=== PATIENT | female | born 1980 | race American Indian/Alaskan Native ===

== ENCOUNTER 2020-05-29 10:00 | Outpatient (CLI) | payer MEDICAID | END 2020-05-29 10:01 | disposition home or self-care (01) | LOC: SLR 10:00 | PROVIDERS: ATTEND Surgery | DX: G47.30 Sleep apnea, unspecified (principal) | CPT/HCPCS: G0399 ==

== ENCOUNTER 2020-10-17 06:24 | Day surgery (SDC) | payer MEDICAID ==
[2020-10-17] MEDS ORDERED: SODIUM CHLORIDE 0.9% 1000 ML 1,000 ML IV SCH (07:00)
--- NOTE | 2020-10-17 07:47 | Anesthesia Consultation ---
Anesthesia Consult and Med Hx Date of service: 10/17/20 - Airway Anesthetic Teeth Evaluation: Good ROM Head & Neck: Adequate Mental/Hyoid Distance: Adequate Mallampati Class: Class I Intubation Access Assessment: Probably Good - Pulmonary Exam CTA: Yes - Cardiac Exam Cardiac Exam: RRR - Pre-Operative Health Status ASA Pre-Surgery Classification: ASA3 Proposed Anesthetic Plan: MAC - Pulmonary Hx Smoking: No Hx Sleep Apnea: Yes (waiting on CPAP to arrive) - Cardiovascular System Hx Hypertension: Yes - Central Nervous System Hx Neuromuscular Disorder: No - Endocrine Hx Renal Disease: No Hx Liver Disease: No Hx Thyroid Disease: No - Hematic Hx Anemia: No Hx Sickle Cell Disease: No - Other Systems Hx Alcohol Use: No Hx Obesity: Yes (BMI 48.7) - Additional Comments Anesthesia Medical History Comments: No h/o GAC. No FHAC.
--- NOTE | 2020-10-17 07:48 | Anesthesia Day of Surgery ---
Anesthesia Day of Surgery - Day of Surgery Patient Examined: Yes Patient H&P Reviewed: Yes Patient is NPO: Yes Beta Blockers: No (n/a) Cardiac Clearance: No (n/a) Pulmonary Clearance: No (n/a) Kory's Test: N/A
--- NOTE | 2020-10-17 08:49 | Operative Report ---
Operative Report Operative Report: DATE: 10/17/2020 SURGERY: Upper endoscopy. SURGEON: Dianna James M.D. PROCEDURE: EGD with biopsy PRE OP DX: morbid obesity, GERD POST OP DX: morbid obesity, GERD TYPE OF ANESTHESIA: MAC. ESTIMATED BLOOD LOSS: None. COMPLICATIONS: None. SPECIMENS REMOVED: antral biopsy FINDINGS: 1. Small hiatal hernia. 2. mild antral gastritis INDICATIONS:INDICATION FOR PROCEDURE: Patient is a 40-year-old female with a long history of morbid obesity. She is planned to have a weight loss procedure and is here for preoperative planning EGD. PROCEDURE DETAILS: After consent was reviewed, patient was taken back to the operating room where patient was placed in the left lateral decubitus position and a bite block was placed in the mouth. After a time-out was called, MAC anesthesia was initiated. I then passed the endoscope into her oropharynx, into her esophagus, visualized the entire esophagus, which was all within normal limits. Z-line was noted to about 38cm from incisors. I then visualized the stomach and the first portion of the duodenum and there were no abnormalities I could clearly visualize except for antral gastritis. A cold forceps biopsy of the antrum was taken and will be sent to pathology to evaluate for H.pylori. I then retroflexed the scope in the stomach and visualized the hiatus and I could see a small hiatal hernia. I then desufflated the stomach and removed the endoscope. Patient tolerated procedure well and was transferred to recovery room in good and stable condition.
--- NOTE | 2020-10-17 08:51 | Discharge Summary ---
Providers - Providers Date of Admission: 10/17/2020 Date of discharge: 10/17/20 Attending physician: GLO MAS MD Primary care physician: MARCELLO LENNON Hospitalization Reason for admission: pre-op EGD Condition: Good Procedures: egd w/ biopsy Hospital course: Pt presented for a pre-op EGD as part of planning for up coming bariatric surgery. Procedure was uneventful and pt recovered well and was discharged to home. Disposition: DC-01 TO HOME OR SELFCARE Final Discharge Diagnosis (Prints w/discharge instructions): dyspepsia, morbid obesity Core Measure Documentation - Palliative Care Palliative Care/ Comfort Measures: Not Applicable - Core Measures Any of the following diagnoses?: none Exam - Physical Exam Narrative exam: unchanged from pre-op - Constitutional Vitals: Temp Pulse Resp BP Pulse Ox 97.9 F 67 16 126/82 98 10/17/20 08:49 10/17/20 08:49 10/17/20 08:49 10/17/20 08:49 10/17/20 08:49 Plan Activity: no restrictions Diet: low carbohydrate Follow up with: MARCELLO LENNON MD [Primary Care Provider] - 7 Days
[2020-10-17] MEDS ORDERED: fentaNYL 100 MCG/2 ML INJ ONE (08:56)
[2020-10-17] MEDS ORDERED: ONDANSETRON 4 MG/2 ML INJ ONE (08:56)
[2020-10-17] MEDS ORDERED: LIDOCAINE MPF (2%) 20 MG/1 ML VIAL 5 ML ONE (08:56)
[2020-10-17] MEDS ORDERED: propofoL 200 MG/20 ML VIAL IV ONE (08:57)
[2020-10-17 09:38] VITALS: BP 120/77
--- NOTE | 2020-10-17 13:51 | Post Anesthesia Evaluation ---
- Post Anesthesia Evaluation Patient Participated: Yes Airway Patent: Yes Stable Respiratory Function: Yes Nausea/Vomiting: No Temp > 96.8F: Yes Pain Manageable: Yes Adequeate Hydration: Yes Anesthesia Complications: No Block Receding Appropriately: Not Applicable Patient on Ventilator: No
== END 2020-10-17 09:50 | disposition home or self-care (01) ==
LOC: GIO 06:24
PROVIDERS: ATTEND Surgery
DX: K21.9 Gastro-esophageal reflux disease without esophagitis (principal); E66.01 Morbid (severe) obesity due to excess calories; K44.9 Diaphragmatic hernia without obstruction or gangrene; K29.70 Gastritis, unspecified, without bleeding; I10 Essential (primary) hypertension; G47.30 Sleep apnea, unspecified; Z91.040 Latex allergy status; Z68.42 Body mass index [BMI] 45.0-49.9, adult
CPT/HCPCS: 43239; 88305; 88342; J2405; J2704; J3010; J7030

== ENCOUNTER 2020-12-18 08:28 | Observation (INO) | payer MEDICAID ==
[2020-12-13 10:20] LABS: Alanine Aminotransferase 7 units/L (7-56); Albumin 3.8 g/dL (3.9-5); Blood Urea Nitrogen 16 mg/dL (7-17); Hemolysis Index 2
[2020-12-13 10:26] LABS: BUN/Creatinine Ratio 40
[2020-12-13 10:35] LABS: Hematocrit 33.8 % (30.3-42.9); Hemoglobin 11.4 gm/dl (10.1-14.3); Mean Corpuscular HGB Conc 34 % (30-34); Mean Corpuscular Volume 90 fl (79-97); Platelet Count 226 K/mm3 (140-440); Red Blood Count 3.74 M/mm3 (3.65-5.03); Red Cell Distribution Width 13.7 % (13.2-15.2)
--- NOTE | 2020-12-13 11:33 | Anesthesia Consultation ---
Anesthesia Consult and Med Hx Date of service: 12/18/20 - Airway Anesthetic Teeth Evaluation: Good (Missing teeth) ROM Head & Neck: Adequate Mental/Hyoid Distance: Adequate Mallampati Class: Class II Intubation Access Assessment: Good - Pre-Operative Health Status ASA Pre-Surgery Classification: ASA3 Proposed Anesthetic Plan: General - Pulmonary Hx Smoking: No Hx Respiratory Symptoms: No (+2FS) Hx Sleep Apnea: Yes - Cardiovascular System Hx Hypertension: Yes (Sometimes high but not treated) - Central Nervous System Hx Neuromuscular Disorder: No Hx Psychiatric Problems: No - Gastrointestinal Hx Gastroesophageal Reflux Disease: Yes (On EGD; denies symptoms) - Endocrine Hx Renal Disease: No Hx Liver Disease: No Hx Thyroid Disease: No - Hematic Hx Anemia: No Hx Sickle Cell Disease: No - Other Systems Hx Alcohol Use: No Hx Cancer: No Hx Obesity: Yes (BMI 48.7)
[~2020-12-18 08:28] MED LIST: ACETAMINOPHEN IV 1,000 MG/100 ML BOTTLE IV NR; ENOXAPARIN 40 MG/0.4 ML INJ SUB-Q NR; GABAPENTIN 500 MG/10 ML ORAL LIQD PO NR; METHOCARBAMOL IV NR; MIDAZOLAM 2 MG/2 ML INJ IV NR; SCOPOLAMINE TRANSDERMAL PATCH 72 HR TD NR; SODIUM CHLORIDE 0.9% IV NR; metroNIDAZOLE/NS 500 MG/100 ML 500 MG/100 ML BAG IV NR
[2020-12-18 09:00] LABS: Bilirubin,Urine NEG (Negative); Blood,Urine SM (Negative); Color,Urine Yellow (Yellow); Mucus,Urine 1+ /HPF; Protein,Urine <15 mg/dL mg/dL (Negative)
[2020-12-18] MEDS: LACTATED RINGERS 1,000 ML IV SCH (09:01)
[2020-12-18] MEDS ORDERED: LIDOCAINE 1%/EPINEPHRINE 1:100,000 VIAL (20 ML) INFILTRATI ONE ×2 (09:54→11:45)
[2020-12-18] MEDS ORDERED: BUPIVACAINE/PF (0.25%) 2.5 MG/ML 30 ML VIAL INFILTRATI ONE ×2 (09:54→11:43)
[2020-12-18] MEDS ORDERED: dexAMETHasone 20 MG/5 ML VIAL ONE (10:01)
[2020-12-18] MEDS ORDERED: propofoL 200 MG/20 ML VIAL IV ONE (10:01)
[2020-12-18] MEDS ORDERED: ROCURONIUM 50 MG/5 ML INJ IV ONE ×2 (10:01→11:57)
[2020-12-18] MEDS ORDERED: MAGNESIUM SULFATE 4 GM/100 ML BAG IV ONE (10:22)
[2020-12-18] MEDS ORDERED: SODIUM CHLORIDE P/F VIAL 10 ML 10 ML ONE (10:23)
[2020-12-18] MEDS ORDERED: KETAMINE/STERILE WATER 50 MG/ML SYRINGE ONE (10:29)
[2020-12-18] MEDS ORDERED: KETOROLAC 30 MG/1 ML INJ ONE ×2 (10:29→12:01)
[2020-12-18] MEDS ORDERED: LIDOCAINE PF 100 MG/5 ML (CARDIAC SYRINGE) IV ONE (10:33)
[2020-12-18] MEDS ORDERED: SODIUM CHLORIDE 0.9% IRR 1,000 ML BOTTLE IR ONE (11:43)
--- NOTE | 2020-12-18 11:51 | Anesthesia Day of Surgery ---
Anesthesia Day of Surgery - Day of Surgery Patient Examined: Yes Patient H&P Reviewed: Yes Patient is NPO: Yes
[2020-12-18] MEDS ORDERED: ONDANSETRON 4 MG/2 ML INJ ONE (12:01)
[2020-12-18] MEDS ORDERED: NEOSTIGMINE 10MG/10 ML INJ MDV ONE (12:25)
[2020-12-18] MEDS ORDERED: GLYCOPYRROLATE 0.4 MG/2 ML INJ ONE ×2 (12:25)
[2020-12-18] MEDS ORDERED: ONDANSETRON 4 MG/2 ML INJ IV PRN ×2 (12:33→13:21)
[2020-12-18] MEDS ORDERED: METOCLOPRAMIDE 10 MG/2 ML INJ IV PRN (13:21)
[2020-12-18] MEDS ORDERED: hydrALAZINE 20 MG/1 ML INJ IV PRN (13:21)
[2020-12-18] MEDS ORDERED: HYDROmorphone 1 MG/1 ML INJ IV PRN (13:21)
[2020-12-18] MEDS ORDERED: SIMETHICONE 80 MG CHEW TAB PO PRN (13:21)
[2020-12-18] MEDS ORDERED: MORPHINE 2 MG/1 ML INJ IV PRN (13:21)
[2020-12-18] MEDS ORDERED: LACTATED RINGERS 1,000 ML IV SCH (13:30)
--- NOTE | 2020-12-18 13:31 | Operative Report ---
Operative Report Operative Report: DATE: 12/18/2020 Surgeon: Dianna James MD Filter Tank Tender surgeon: Goldie Escobedo CSA MD Pre-op Dx: morbid obesity Post-op Dx: morbid obesity Procedure: 1. laparoscopic sleeve gastrectomy, 2. hiatal hernia repair Anesthesia: GETA and TAP block EBL: <10ml Specimen: gastric remnant Complication: none immediate Indication: 40 year old female with a history of morbid obesity . Pt is here for sleeve gastrectomy for weight loss to achieve healthier weight and improve or resolve his co-morbidities. She expressed understanding of the risks and benefits. PROCEDURE IN DETAIL: After consent was reviewed, patient was taken back to the operating room, where patient was placed supine on the bed with both arms out. The patient's legs were doubly strapped to the bed. Patient had a foot board in place. Patient had a body warmer placed by anesthesia. General anesthesia was induced with successful endotracheal intubation. Patient was then prepped and draped in normal sterile surgical fashion. After a time-out was called, I made a stab incision in the left subcostal area and placed a Veress needle through this incision and insufflated the abdomen to 18 mmHg pressure. I then counted down a handsbreadth below the xiphoid process in the midline and slightly left lateral injected local anesthetic and made about 1 cm transverse incision. I then used a 5-mm Optiview trocar to enter into the abdomen. There was no gross injury to any intra-abdominal structures. I then placed a 30-degree scope through this port and inspected the abdomen. I then placed a 8-mm port in the right upper quadrant, and 1 5mm in the epigastric area below the costovertebral angle. I then placed a 15-mm port about a handsbreadth in the right mid abdomen. After which a 5mm port was placed in left upper quadrant port along the anterior axillary line in a similar fashion. A liver retractor was placed to the epigastric port to elevate the left lateral lobe and liver. There was a small hiatal hernia appreciated that was accentuated with right and left crural dissection. Hiatal hernia sac was dissected from the crura until the GE junction was resting about 2cm below the level of the diaphragm without tension. An anterior crura-plasty was preformed via a U-stitch using surgidac suture. The anterior gastric fat pad was excised. Starting approximately 6 cm proximal to the pylorus, using a LigaSure device the short gastrics were taken all the way to the left alessandro. Once the lateral portion of the stomach was mobile anesthesia passed a 40 Frisian bougie along the medial aspect to act as a stent. Using serial firings of endoscopic stapler to gold, followed by 4 blue, the lateral portion of the stomach was transected making sure to did not close to the 2 cm to the incisura. All staple loads were supported with Ethicon buttress strips. The sleeve stomach was seen to be without kink obstruction or twisting. The pressure was decreased to 10 mmHg. The staple line was inspected for approximately 5 minutes. There was no significant bleeding appreciated except for a slight ooze at the most distal portion of the staple line. Bleeding was minimal and easily controlled with minimal cautery. Tisseel was then sprayed along the entirety of the staple line. The liver retractor was removed. A TAP block was performed with 60ml of 0.25% marcaine along bilateral mid axillary lines starting from the subcostal region to just below the level of the umbilicus This was after the gastric remnant was grasped and pulled into the 15 mm trocar site. The stomach was extracted via the 15 mm trocar site. After the fascia had to be stretched with a Carie clamp to easily remove the stomach, the fascia was closed using a flory colleen device at the level of the fascia with an 0 PDS. trocars were removed under direct visualization. All skin incisions were closed with 4-0 Monocryl followed by Dermabond. Patient was awoken, extubated, and taken to recovery stable condition. All counts were correct.
[2020-12-18] MEDS ORDERED: hydrALAZINE 20 MG/1 ML INJ IV NR (15:00)
--- NOTE | 2020-12-18 15:01 | Post Anesthesia Evaluation ---
- Post Anesthesia Evaluation Patient Participated: Yes Airway Patent: Yes Stable Respiratory Function: Yes Nausea/Vomiting: Yes (IV antiemetics given) Temp > 96.8F: Yes Pain Manageable: Yes Adequeate Hydration: Yes Anesthesia Complications: No
[2020-12-18] MEDS: ACETAMINOPHEN IV 1,000 MG/100 ML BOTTLE IV SCH ×2 (18:16→21:25)
[2020-12-18] MEDS: KETOROLAC 30 MG/1 ML INJ IV SCH ×2 (18:57→21:27)
[2020-12-18] MEDS: PANTOPRAZOLE 40 MG INJ IV SCH (20:34)
[2020-12-18] MEDS: metroNIDAZOLE/NS 500 MG/100 ML 500 MG/100 ML BAG IV SCH (20:34)
[2020-12-18] MEDS: ceFAZolin/NS 1 GM/50 ML 1 GM/50 ML BAG IV SCH (21:28)
[2020-12-19] MEDS: metroNIDAZOLE/NS 500 MG/100 ML 500 MG/100 ML BAG IV SCH ×3 (00:16→07:02)
[2020-12-19] MEDS: ceFAZolin/NS 1 GM/50 ML 1 GM/50 ML BAG IV SCH (00:16)
[2020-12-19] MEDS: KETOROLAC 30 MG/1 ML INJ IV SCH ×4 (03:14→21:47)
[2020-12-19] MEDS: ACETAMINOPHEN IV 1,000 MG/100 ML BOTTLE IV SCH ×2 (03:14→10:07)
[2020-12-19] MEDS: LACTATED RINGERS 1,000 ML IV SCH (03:15)
[2020-12-19 05:08] LABS: Basophils % (Auto) 0.3 % (0.0-1.8); Hematocrit 37.5 % (30.3-42.9); Hemoglobin 12.7 gm/dl (10.1-14.3); Lymphocytes # (Auto) 0.9 K/mm3 (1.2-5.4); Lymphocytes % (Auto) 8.8 % (13.4-35.0); Mean Corpuscular HGB Conc 34 % (30-34); Mean Corpuscular Volume 91 fl (79-97); Monocytes # (Auto) 0.5 K/mm3 (0.0-0.8); Monocytes % (Auto) 5.4 % (0.0-7.3); Platelet Count 219 K/mm3 (140-440); Red Blood Count 4.14 M/mm3 (3.65-5.03); Red Cell Distribution Width 13.8 % (13.2-15.2)
[2020-12-19 05:25] LABS: Alanine Aminotransferase 10 units/L (7-56); Albumin 3.6 g/dL (3.9-5); Blood Urea Nitrogen 6 mg/dL (7-17); Calcium 9.2 mg/dL (8.4-10.2); Hemolysis Index 6
[2020-12-19 05:52] LABS: BUN/Creatinine Ratio 12
[2020-12-19] MEDS: ENOXAPARIN 40 MG/0.4 ML INJ SUB-Q SCH (10:06)
[2020-12-19] MEDS: PANTOPRAZOLE 40 MG INJ IV SCH (10:06)
--- NOTE | 2020-12-19 14:06 | Progress Note ---
Assessment and Plan POD#1 s/p lap gastric sleeve with hiatal hernia repair. Afebrile and stable. not drinking sufficient to feel comfortable to discharge today. Will continue to encourage frequent small sips and hopefully discharge tomorrow. Subjective Date of service: 12/19/20 Narrative: Pt says she did ok overnight. Pain is controlled. She says she has some pain after she drinks but denies nausea and vomiting. Objective Vital Signs - 12hr 12/19/20 12/19/20 12/19/20 03:12 04:12 08:10 Temperature 99.8 F H 98.3 F Pulse Rate 90 70 95 H Respiratory 16 20 Rate Blood Pressure 149/87 147/91 O2 Sat by Pulse 98 98 Oximetry - General physical appearance well developed, no distress, no pain - Respiratory normal expansion, normal respiratory effort - Abdomen soft, other (appopriatley tender to palpation) - Psychiatric oriented to time, oriented to person, oriented to place - Labs 12/19/20 04:25 12/19/20 04:25 Diabetes panel 12/19/20 Range/Units 04:25 Sodium 135 L (137-145) mmol/L Potassium 4.1 (3.6-5.0) mmol/L Chloride 101.7 (98-107) mmol/L Carbon Dioxide 25 (22-30) mmol/L BUN 6 L (7-17) mg/dL Creatinine 0.5 L (0.6-1.2) mg/dL Glucose 93 (65-100) mg/dL Calcium 9.2 (8.4-10.2) mg/dL AST 15 (5-40) units/L ALT 10 (7-56) units/L Alkaline Phosphatase 77 (35-129) units/L Total Protein 7.2 (6.3-8.2) g/dL Albumin 3.6 L (3.9-5) g/dL Calcium panel 12/19/20 Range/Units 04:25 Calcium 9.2 (8.4-10.2) mg/dL Albumin 3.6 L (3.9-5) g/dL Pituitary panel 12/19/20 Range/Units 04:25 Sodium 135 L (137-145) mmol/L Potassium 4.1 (3.6-5.0) mmol/L Chloride 101.7 (98-107) mmol/L Carbon Dioxide 25 (22-30) mmol/L BUN 6 L (7-17) mg/dL Creatinine 0.5 L (0.6-1.2) mg/dL Glucose 93 (65-100) mg/dL Calcium 9.2 (8.4-10.2) mg/dL Adrenal panel 12/19/20 Range/Units 04:25 Sodium 135 L (137-145) mmol/L Potassium 4.1 (3.6-5.0) mmol/L Chloride 101.7 (98-107) mmol/L Carbon Dioxide 25 (22-30) mmol/L BUN 6 L (7-17) mg/dL Creatinine 0.5 L (0.6-1.2) mg/dL Glucose 93 (65-100) mg/dL Calcium 9.2 (8.4-10.2) mg/dL Total Bilirubin 0.30 (0.1-1.2) mg/dL AST 15 (5-40) units/L ALT 10 (7-56) units/L Alkaline Phosphatase 77 (35-129) units/L Total Protein 7.2 (6.3-8.2) g/dL Albumin 3.6 L (3.9-5) g/dL
[2020-12-19] MEDS: HYDROcodone/Acetaminophen 7.5-325MG-15ML ORAL LIQD PO PRN (19:53)
[2020-12-20] MEDS: HYDROcodone/Acetaminophen 7.5-325MG-15ML ORAL LIQD PO PRN (01:56)
[2020-12-20] MEDS: KETOROLAC 30 MG/1 ML INJ IV SCH ×2 (02:00→08:59)
[2020-12-20] MEDS ORDERED: diphenhydrAMINE 50 MG/ML VIAL IV ONE (03:00)
[2020-12-20 05:06] LABS: Basophils % (Auto) 0.5 % (0.0-1.8); Eosinophils % (Auto) 0.5 % (0.0-4.3); Hematocrit 36.1 % (30.3-42.9); Hemoglobin 12.4 gm/dl (10.1-14.3); Lymphocytes # (Auto) 1.9 K/mm3 (1.2-5.4); Lymphocytes % (Auto) 26.5 % (13.4-35.0); Mean Corpuscular HGB Conc 34 % (30-34); Mean Corpuscular Volume 90 fl (79-97); Monocytes # (Auto) 0.5 K/mm3 (0.0-0.8); Monocytes % (Auto) 6.7 % (0.0-7.3); Platelet Count 226 K/mm3 (140-440); Red Blood Count 4.02 M/mm3 (3.65-5.03); Red Cell Distribution Width 13.3 % (13.2-15.2)
[2020-12-20 05:25] LABS: Alanine Aminotransferase 9 units/L (7-56); Albumin 3.6 g/dL (3.9-5); Blood Urea Nitrogen 8 mg/dL (7-17); Calcium 9.3 mg/dL (8.4-10.2); Hemolysis Index 1
[2020-12-20 05:28] LABS: BUN/Creatinine Ratio 13
[2020-12-20 08:26] VITALS: BP 153/76
[2020-12-20] MEDS: ENOXAPARIN 40 MG/0.4 ML INJ SUB-Q SCH (09:00)
[2020-12-20] MEDS: PANTOPRAZOLE 40 MG INJ IV SCH (09:01)
[2020-12-20] MEDS ORDERED: diphenhydrAMINE/ZINC ACET 2% CREAM 28.4 GM TP PRN (11:00)
--- NOTE | 2020-12-20 12:19 | Discharge Summary ---
Providers - Providers Date of Admission: 12/18/20 08:29 Date of discharge: 12/20/20 Attending physician: GLO MAS MD 12/18/20 13:21 Physical Therapy Evaluation and Treat [CONS] Routine Comment: Reason For Exam: post op bariatric surgery Primary care physician: MARCELLO LENNON Hospitalization Reason for admission: s/p bariatric surgery Condition: Good Procedures: lap gastric sleeve with hiatal hernia repair Hospital course: Patient had an uncomplicated laparoscopic gastric sleeve with hiatal hernia repair for morbid obesity. Patient remained afebrile and stable throughout her course. She had laboratory values that were within acceptable limits with good pain control. Patient stayed an extra day due to insufficient oral intake due to discomfort when drinking. By postop day 2 she was tolerating liquids with minimal difficulty. She was discharged to home on postop day 2 showing no clinical signs of leak or bleeding. Patient is to follow-up in the office in 2 weeks for follow-up. Disposition: 01 HOME / SELF CARE / HOMELESS Final Discharge Diagnosis (Prints w/discharge instructions): Morbid obesity, gastroesophageal reflux Core Measure Documentation - Palliative Care Palliative Care/ Comfort Measures: Not Applicable - Core Measures Any of the following diagnoses?: none Exam - Constitutional Vitals: Temp Pulse Resp BP Pulse Ox 98.2 F 66 18 153/76 95 12/20/20 08:24 12/20/20 08:24 12/20/20 10:15 12/20/20 08:24 12/20/20 10:15 General appearance: Present: no acute distress, obese - Respiratory Respiratory effort: normal - Cardiovascular Heart Sounds: Present: S1 & S2 - Extremities Extremities: no ischemia - Abdominal General gastrointestinal: Present: other (Incisions clean dry and intact, appropriately tender to palpation) Plan Activity: advance as tolerated Diet: clear liquids Wound: open to air, keep clean and dry Follow up with: MARCELLO LENNON MD [Primary Care Provider] - 7 Days
--- OUTSIDE RECORDS SUMMARY | 2020-12-21 07:42 | External Medical Summary ---
:1980 Author Organization [facility], [facility] Address [address] [place] [address] Care Team Providers Name Role Phone Dianna James Unavailable [phone] PROBLEMS Type Condition ICD9-CM KGY14-VO Onset Condition W/U Status Risk SNOM ED Notes Code Code Dates Status Code Problem Body mass Z68.42 Active confirmed 905732149 index [BMI] 45.0-49.9, adult Problem Vitamin D E55.9 Active confirmed 98010601 deficiency, unspecified Problem Gastro-esopha K21.9 Active confirmed 171524 005 geal reflux disease without esophagitis Problem Dietary Z71.3 Active confirmed 885502215 counseling and surveillance Problem Functional K30 Active confirmed 5760646 dyspepsia Problem Sleep apnea, G47.30 Active confirmed 5889930 6 unspecified Problem Morbid E66.01 Active confirmed 196280571 (severe) obesity due to excess calories ALLERGIES Allergen (clinical drug Drug/Non Drug Allergy Reaction Allergy Type Onset Date Status ingredient) documented on EMR Latex Latex Unknown Drug Allergy Active ENCOUNTERS from 1979 to 2020-12-18 Encounter Location Date Provider Diagnosis [facility] [address] 16 Nov, 2020 [address]ianna James Morbi d (severe) [address] obesity due to excess of [place], [place] calorie s E66.01 ; [id number] Sleep apnea, unspecified G47 .30 and Gastro-esophage al reflux disease without esophagitis K21 .9 IMMUNIZATIONS No Information SOCIAL HISTORY Tobacco Use: Social History Observation Description Date Details (start date - stop date) Never Smoker Sex Assigned At : Social History Observation Description Sex Assigned At Unknown Smoking Question Answer Notes Are you a: never smoker REASON FOR REFERRAL from 1979 to 2020-12-18 Diagnosis 1 Functional dyspepsia (K30) Diagnosis 2 Morbid (severe) obesity due to excess calories (E66.01) Diagnosis 3 Sleep apnea, unspecified (G4 7.30) Diagnosis 4 Dietary counseling and surve illance (Z71.3) Diagnosis 5 Body mass index [BMI] 45.0-4 9.9, adult (Z68.42) Diagnosis 6 Vitamin D deficiency, unspec ified (E55.9) Diagnosis 7 Gastro-esophageal reflux dis ease without esophagitis (K21.9) Diagnosis 8 Pain in unspecified knee (M2 5.569) Diagnosis 9 Low back pain (M54.5) Referral Organization [facility] Referring Provider First Name Dianna Referring Provider Last Name Jacob Referring Provider Specialty Surgery Referred Provider [facility], - Referral Priority Routine VITAL SIGNS Height 67 in Nov, Weight 281.7 lbs Nov, Temperature 97.8 degrees Fahrenheit Nov, BMI 44.12 kg/m2 Nov, Blood pressure systolic 138 mm Hg Nov, Blood pressure diastolic 89 mm Hg Nov, MEDICATIONS Medication SIG (Take, Route, Frequency, Notes Start Date End Bear e Status Duration) Ondansetron 4 MG 1-2 tablet on the tongue and Nov, Active allow to dissolve Orally q 4-6 hours prn nausea for 30 day(s) NexIUM 40 MG 1 capsule Orally Once a day for Nov, Active 30 day(s) PROCEDURES No Information RESULTS No Results REASON FOR VISIT preop sleeve MEDICAL (GENERAL) HISTORY Type Description Date Medical History anxiety Medical History sleep apnea Medical History dyspepsia Medical History arthritis/joint pain Medical History asthma Medical History back pain Medical History depression Medical History eczema or skin conditon Medical History high blood pressure Medical History migraines Medical History easy bruising Medical History gerd Surgical History breast reduction 2000 Goals Section No Information Health Concerns No Information MEDICAL EQUIPMENT No Information MENTAL STATUS No Information FUNCTIONAL STATUS No Information ASSESSMENTS Encounter Date Diagnosis Assessment Notes Treatment Notes Treatm ent Clinical Notes Nov, Morbid (severe) An hour was spent obesity due to with patient excess calories reinforcing diet, (ICD-10 - E66.01) vitamin requirements and lifestyle education, A quiz was administered and reviewed to verify understanding of intended procedure and post operative care. Consent forms were reviewed with patient and signed answering all questions, Pre-operative labs were ordered. Nov, Sleep apnea, Follow-up with CPAP unspecified company. May need (ICD-10 - G47.30) to get loaner from sleep lab. Sleep apnea should improve with weight loss after surgery. Nov, Gastro-esophageal Discussed with reflux disease patient that sleeve without gastrectomy may make esophagitis her reflux worse (ICD-10 - K21.9) however because it is mild and if she lose weight she may see improvement. PLAN OF TREATMENT Medication Medication Name Sig Start Date Stop Date Ondansetron 4 MG 1-2 tablet on the tongue and allow to Nov, 021 dissolve Orally q 4-6 hours prn nausea for 30 day(s) NexIUM 40 MG 1 capsule Orally Once a day for 30 day(s) Nov Treatment Notes Assessment Notes Clinical Notes Morbid (severe) obesity due to An hour was spent with patien t excess calories reinforcing diet, vitamin requirements and lifestyle education, A quiz was administered and reviewed to verify understanding of intended procedure and post operative care. Consent forms were reviewed with patient and signed answering all questions, Pre-operative labs were ordered. Sleep apnea, unspecified Follow-up with CPAP company. May need to get loaner from sleep lab. Sleep apnea should improve with weight loss after surgery. Gastro-esophageal reflux disease Discussed with patient that sleeve without esophagitis gastrectomy may make her reflux worse however because it is mild and if she lose weight she may see improvement. Referrals Referral Date Details Next Appt Details at surgery Reason: Provider Name:Dianna James, 2020-11- 7 09:45:00 AM, [address] [facility], [facility], [place], [place], [phone], Insurance Providers Payer Name Payer Address Payer Insured Name Patient Coverage Co verage End Phone Relationship to Start Date Bear e Insured [employer] [address] [address] [phone] Erickson Kirby self [address] [address]
== END 2020-12-20 15:58 | disposition home or self-care (01) ==
LOC: OR 08:28 → 4A 08:29
PROVIDERS: ADMIT Surgery; ATTEND Surgery
DX: K44.9 Diaphragmatic hernia without obstruction or gangrene (principal); Z20.822 Contact with and (suspected) exposure to COVID-19; E66.01 Morbid (severe) obesity due to excess calories; K95.89 Other complications of other bariatric procedure; Z68.41 Body mass index [BMI] 40.0-44.9, adult; Z79.899 Other long term (current) drug therapy; Z98.890 Other specified postprocedural states
CPT/HCPCS: 36415; 43281; 43775; 80053; 81001; 84703; 85025; 85027; 88307; 88342; 96365; 96366; 96367; 96368; 96372; 96375; 96376; 97162; C9113; G0378; J0131; J0360; J0690; J1100; J1650; J1885; J2001; J2250; J2405; J2704; J2710; J2800; J3475; J3490; J7050; J7120; U0003

== ENCOUNTER 2021-01-04 21:17 | Inpatient (IN) | payer MEDICAID ==
--- NOTE | 2021-01-04 22:20 | Emergency Department Report ---
ED General Adult HPI - General Chief complaint: Chest Pain Stated complaint: PAIN WHEN BREATHING RT SIDE Time Seen by Provider: 01/04/21 22:07 Source: patient Mode of arrival: Ambulatory Limitations: No Limitations - History of Present Illness Initial comments: 40-year-old female patient who is postop day #17 status post gastric sleeve surgery performed at this facility by Dr. James presents to the emergency department with complaints of chest pain starting 2 days ago. Describes pain as "sharp," localized to the right side of the chest, radiating to the right side of her back, reproducible with deep inspiration, with associated shortness of breath. Patient has no personal or family history of thromboembolic disease. Denies fever, chills, cough, palpitations, syncope, lower extremity pain/swelling. Denies all other complaints at this time. - Related Data Home Medications Medication Instructions Recorded Confirmed Last Taken No Known Home Medications [No 12/11/20 12/18/20 Unknown Reported Home Medications] Allergies Allergy/AdvReac Type Severity Reaction Status Date / Time latex Allergy Rash Verified 12/11/20 18:10 ED Review of Systems ROS: Stated complaint: PAIN WHEN BREATHING RT SIDE Other details as noted in HPI Other: GENERAL: Negative for fever, chills, weight change, anorexia, fatigue. ENT: Negative for ear pain, difficulty hearing, sore throat, nasal congestion, epistaxis. CARDIOVASCULAR: Positive for chest pain PULMONARY: Positive shortness of breath. GASTROINTESTINAL: Negative for abdominal pain, nausea, vomiting, diarrhea, constipation. MUSCULOSKELETAL: Negative for joint pain, joint swelling, myalgias, back pain, neck pain. NEUROLOGICAL: Negative for headache, seizure, syncope, paresthesias, weakness. INTEGUMENTARY: Negative for erythema, rash, diaphoresis, laceration, ecchymosis. HEMATOLOGICAL: Negative for hemoptysis, hematemesis, hematochezia, hematuria. PSYCHIATRIC: Negative for hallucinations, suicidal ideation, homicidal ideation, anxiety, depression. ED Past Medical Hx - Past Medical History Previous Medical History?: Yes Hx Hypertension: Yes (Sometimes high but not treated) Hx GERD: Yes Hx Liver Disease: No Hx Renal Disease: No Hx Sickle Cell Disease: No Hx Arthritis: Yes (Shoulders) - Surgical History Past Surgical History?: Yes Hx Breast Surgery: Yes (Reduction) Additional Surgical History: gastric sleeve - Social History Smoking Status: Never Smoker - Medications Home Medications: Home Medications Medication Instructions Recorded Confirmed Last Taken Type No Known Home Medications [No 12/11/20 12/18/20 Unknown History Reported Home Medications] ED Physical Exam - General Limitations: No Limitations - Other Other exam information: General: Awake and alert. No acute distress. Head: Atraumatic, normocephalic. Eyes: EOMI. Pupils are equal and round. Normal sclera and conjunctiva. ENT: Oral mucosa is moist. Normal pharyngeal exam. Neck: Supple. No lymphadenopathy. Pulmonary: No respiratory distress. Clear to auscultation bilaterally. Pleuritic right-sided chest pain reproducible with deep inspiration. Cardiac: Regular rate and rhythm. Pulses are palpable and equal bilaterally. No lower extremity cyanosis or edema. Skin: Warm and dry. No rashes. Abdomen: Soft, non-tender, non-protuberant. No guarding, rigidity, or rebound. Bowel sounds are normal. No organomegaly or masses noted. Back: Normal alignment. No CVA tenderness. Extremities: Symmetrical. Full range of motion intact. Neurological: Alert and oriented, appropriately interactive, no focal deficits. Psych: Cooperative. Appropriate mood and affect. Speech is evenly metered. Thoughts are logically construed. ED Course Vital Signs 01/04/21 21:40 Temperature 98.4 F Pulse Rate 91 H Respiratory 20 Rate Blood Pressure 114/80 O2 Sat by Pulse 96 Oximetry ED Medical Decision Making - Lab Data Result diagrams: 01/04/21 22:36 01/04/21 22:36 - EKG Data 01/05/21 01:58 EKG shows normal sinus rhythm with a ventricular rate of 88 bpm. Normal axis. Normal DC interval. Normal QT interval. Good R wave progression. No ST segment changes. Over read by attending emergency physician, who agrees with this interpretation. - Radiology Data [facility] [address] [place] [address] Cat Scan Report Signed Patient: GRANT OSORIO MR#: [id number] : 1980 Acct:[id number] Age/Sex: 40 / F ADM Date: 01/04/21 Loc: ED Attending Dr: Ordering Physician: TONI TELLO Date of Service: 01/04/21 Procedure(s): CT angio chest Accession Number(s): [id number] cc: TONI TELLO CTA CHEST WITH IV CONTRAST INDICATION: Pt complains of pleuritic chest pain, S/P Gastric Sleeve surgery. TECHNIQUE: Axial CT images were obtained through the chest after injection of 100 cc IV contrast. 3 plane MIP reconstructions were produced. All CT scans at this location are performed using CT dose reduction for ALARA by means of automated exposure control. COMPARISON: None available. FINDINGS: PULMONARY ARTERIES: Moderate to large acute pulmonary emboli right middle and lower lobes. THORACIC AORTA: No acute abnormality. HEART: Normal. CORONARY ARTERIES: No significant calcification. PLEURA: No pleural effusion. No pneumothorax. LYMPH NODES: No significant adenopathy. LUNGS: Linear atelectasis lingula and both lower lobes. ADDITIONAL FINDINGS: None. UPPER ABDOMEN: No acute findings. Gastric bypass surgery SKELETAL STRUCTURES: No significant osseous abnormality. IMPRESSION: 1. Acute moderate to large segmental pulmonary emboli right middle and lower lobes CRITICAL RESULT: Acute right middle and lower lobe PTE Time of Discovery (STEPDOWN NURSE/CDT): 11:50 PM Central time 01/04/2021 Time of Communication (STEPDOWN NURSE/CDT): 11:51 PM Central time Licensed Practitioner Receiving Report: Nurse Landaverde Read-Back Performed: Yes. Signer Name: Tone Whittaker MD Signed: 01/05/2021 12:52 AM Workstation Name: [id number] Transcribed By: TL Dictated By: Tone Whittaker MD Electronically Authenticated By: Tone Whittaker MD Signed Date/Time: 01/05/2151 DD/ TD/TT: - Medical Decision Making Differential diagnosis including but not limited to: pulmonary embolism, pulmonary infarction, right heart strain, pleural effusion, pneumothorax On reevaluation, patient remains stable. No tachycardia, no hypoxia, no respiratory distress. Labs are unremarkable. EKG without acute injury pattern. D-dimer was not obtained due to high pretest probability for pulmonary embolism based on clinical presentation and recent surgery. CT angiogram of the chest shows acute moderate/large segmental pulmonary emboli involving the right middle and lower lobes. No clinical evidence to suggest right heart strain or pulmonary infarction. Patient placed on billiard table mechanic and continuous pulse oximetry. Started Heparin bolus 80 units/kg followed by Heparin drip 18 units/kg/hour. Case discussed with Dr. Matamoros, hospitalist, who agrees to admit. Patient expressed understanding and is agreeable to plan of care. Case discussed with Dr. Pa, attending emergency physician, who agrees with diagnostic work-up/plan of care. Critical Care Time: Yes Critical care time in (mins) excluding proc time.: 74 Critical care attestation.: If time is entered above; I have spent that time in minutes in the direct care of this critically ill patient, excluding procedure time. Critical Care Time: 74 ED Disposition Clinical Impression: Pulmonary emboli Qualifiers: Pulmonary embolism type: unspecified Chronicity: acute Acute cor pulmonale pres ence: without acute cor pulmonale Qualified Code(s): I26.99 - Other pulmonary embolism without acute cor pulmonale Disposition: 09 ADMITTED INPATIENT Is pt being admited?: Yes Does the pt Need Aspirin: No Condition: Serious Time of Disposition: 02:24
[2021-01-04 22:56] LABS: Basophils % (Auto) 0.4 % (0.0-1.8); Eosinophils % (Auto) 0.4 % (0.0-4.3); Hematocrit 38.3 % (30.3-42.9); Hemoglobin 12.9 gm/dl (10.1-14.3); Lymphocytes # (Auto) 0.7 K/mm3 (1.2-5.4); Lymphocytes % (Auto) 10.3 % (13.4-35.0); Mean Corpuscular HGB Conc 34 % (30-34); Mean Corpuscular Volume 91 fl (79-97); Monocytes # (Auto) 0.3 K/mm3 (0.0-0.8); Monocytes % (Auto) 4.5 % (0.0-7.3); Platelet Count 223 K/mm3 (140-440); Red Blood Count 4.21 M/mm3 (3.65-5.03); Red Cell Distribution Width 13.1 % (13.2-15.2)
[2021-01-04 23:05] LABS: INR 0.99 (0.87-1.13)
[2021-01-04 23:06] LABS: Partial Thromboplastin Time 27.6 Sec. (24.2-36.6)
[2021-01-04 23:23] LABS: Alanine Aminotransferase 8 units/L (7-56); Albumin 3.9 g/dL (3.9-5); Blood Urea Nitrogen 8 mg/dL (7-17); Calcium 9.6 mg/dL (8.4-10.2); Hemolysis Index 1
[2021-01-04 23:49] LABS: BUN/Creatinine Ratio 13
--- NOTE | 2021-01-05 00:56 | Cat Scan Report ---
CTA CHEST WITH IV CONTRAST INDICATION: Pt complains of pleuritic chest pain, S/P Gastric Sleeve surgery. TECHNIQUE: Axial CT images were obtained through the chest after injection of 100 cc IV contrast. 3 plane MIP re constructions were produced. All CT scans at this location are performed using CT dose reduction for ALARA by means of automated exposure control. COMPARISON: None available. FINDINGS: PULMONARY ARTERIES: Moderate to large acute pulmonary emboli right middle and lower lobes. THORACIC AORTA: No acute abnormality. HEART: Normal. CORONARY ARTERIES: No significant calcification. PLEURA: No pleural effusion. No pneumothorax. LYMPH NODES: No significant adenopathy. LUNGS: Linear atelectasis lingula and both lower lobes. ADDITIONAL FINDINGS: None. UPPER ABDOMEN: No acute findings. Gastric bypass surgery SKELETAL STRUCTURES: No significant osseous abnormality. IMPRESSION: 1. Acute moderate to large segmental pulmonary emboli right middle and lower lobes CRITICAL RESULT: Acute right middle and lower lobe PTE Time of Discovery (PUBLIC POLICY ASSOCIATE/CDT): 11:50 PM Central time 01/04/2021 Time of Communication (PUBLIC POLICY ASSOCIATE/CDT): 11:51 PM Central time Licensed Practitioner Receiving Report: Nurse Landaverde Read-Back Performed: Yes. Signer Name: Tone Whittaker MD Signed: 01/05/2021 12:52 AM Workstation Name: [id number]
[2021-01-05] MEDS ORDERED: HEPARIN 10,000 UNITS/10 ML VIAL IV ONE (01:35)
[2021-01-05] MEDS ORDERED: HEPARIN/ 0.45% NACL DRIP 25,000 UNIT/500 ML BAG IV SCH (02:00)
[2021-01-05] MEDS ORDERED: ACETAMINOPHEN 325 MG TAB PO PRN (03:11)
[2021-01-05] MEDS ORDERED: ONDANSETRON 4 MG/2 ML INJ IV PRN (03:11)
[2021-01-05] MEDS ORDERED: MAGNESIUM HYDROXIDE (MOM) ORAL LIQD UDC PO PRN (03:11)
--- NOTE | 2021-01-05 03:21 | History and Physical Report ---
History of Present Illness Date of examination: 01/05/21 Date of admission: 01/05/2021 Chief complaint: Chest pain History of present illness: 40-year-old female presenting to the emergency room today complaining of chest pain which has been ongoing for about 2 days. Patient is status post gastric sleeve surgery about 17 days ago which was performed by Dr. James. Denies any fever or chills, no headache or dizziness and no diaphoresis. Chest pain has been sharp and there has been no radiation. Pain is worse on taking a deep breath. Patient denies any lower extremity swelling. Work-up in the emergency room today, CT angiogram reveals acute moderate to larg e segmental pulmonary emboli right middle and lower lobes. Patient has been started on anticoagulation in the emergency room. Past History Past Medical History: arthritis, GERD, hypertension Past Surgical History: Other (Breast reduction, gastric sleeve) Social history: no significant social history Family history: no significant family history Medications and Allergies Allergies Allergy/AdvReac Type Severity Reaction Status Date / Time latex Allergy Rash Verified 12/11/20 18:10 Home Medications Medication Instructions Recorded Confirmed Last Taken Type No Known Home Medications [No 12/11/20 12/18/20 Unknown History Reported Home Medications] Active Meds: Active Medications Acetaminophen (Acetaminophen 325 Mg Tab) 650 mg PO Q4H PRN PRN Reason: Pain MILD(1-3)/Fever >100.5/VELASCO Heparin Sodium/Sodium Chloride (Heparin/ 0.45% Nacl-25,000 Unit/500 Ml) 25,000 unit in 500 mls @ 30 mls/hr IV TITR CIARA; Protocol Magnesium Hydroxide (Magnesium Hydroxide (Mom) Oral Liqd Udc) 30 ml PO Q4H PRN PRN Reason: Constipation Morphine Sulfate (Morphine 2 Mg/1 Ml Inj) 2 mg IV Q4H PRN PRN Reason: Pain, Moderate (4-6) Morphine Sulfate (Morphine 4 Mg/1 Ml Inj) 4 mg IV Q4H PRN PRN Reason: Pain , Severe (7-10) Ondansetron HCl (Ondansetron 4 Mg/2 Ml Inj) 4 mg IV Q8H PRN PRN Reason: Nausea And Vomiting Sodium Chloride (Sodium Chloride 0.9% 10 Ml Flush Syringe) 10 ml IV PRN PRN PRN Reason: LINE FLUSH Sodium Chloride (Sodium Chloride 0.9% 10 Ml Flush Syringe) 10 ml IV BID CIARA Sodium Chloride (Sodium Chloride 0.9% 10 Ml Flush Syringe) 10 ml IV PRN PRN PRN Reason: LINE FLUSH Review of Systems Constitutional: no fever, no chills Ears, nose, mouth and throat: no nasal congestion, no sore throat Cardiovascular: chest pain, shortness of breath, no palpitations Respiratory: no cough, no shortness of breath Gastrointestinal: no abdominal pain, no nausea, no vomiting, no diarrhea Genitourinary Female: no pelvic pain, no flank pain, no dysuria, no hematuria Musculoskeletal: no neck pain, no low back pain Integumentary: no rash, no pruritis Neurological: no headaches, no confusion Psychiatric: no anxiety, no depression Endocrine: no polyphagia, no polydipsia, no polyuria, no nocturia Exam - Constitutional Vitals: Temp Pulse Resp BP Pulse Ox 98.4 F 91 H 20 114/80 96 01/04/21 21:40 01/04/21 21:40 01/04/21 21:40 01/04/21 21:40 01/04/21 21:40 General appearance: Present: no acute distress, well-nourished, obese - EENT Eyes: Present: PERRL, EOM intact. Absent: scleral icterus ENT: hearing intact, clear oral mucosa, dentition normal - Neck Neck: Present: supple, normal ROM - Respiratory Respiratory effort: normal Respiratory: bilateral: CTA - Cardiovascular Rhythm: regular Heart Sounds: Present: S1 & S2. Absent: gallop, systolic murmur, diastolic murmur, rub, click - Extremities Extremities: no ischemia, pulses intact, pulses symmetrical, No edema, normal temperature, normal color, Full ROM Peripheral Pulses: within normal limits - Abdominal General gastrointestinal: Present: soft, non-tender, non-distended, normal bowel sounds, mass - Integumentary Integumentary: Present: clear, warm, dry, normal turgor. Absent: rash - Musculoskeletal Musculoskeletal: strength equal bilaterally - Psychiatric Psychiatric: appropriate mood/affect, intact judgment & insight, memory intact, cooperative - Neurologic Neurologic: CNII-XII intact, no focal deficits, moves all extremities HEART Score - HEART Score Troponin: Troponin T < 0.010 ng/mL (0.00-0.029) 01/04/21 22:36 Results - Labs CBC & Chem 7: 01/04/21 22:36 01/04/21 22:36 Labs: Abnormal lab results 01/04/21 Range/Units 22:36 RDW 13.1 L (13.2-15.2) % Lymph % (Auto) 10.3 L (13.4-35.0) % Lymph # (Auto) 0.7 L (1.2-5.4) K/mm3 Seg Neutrophils % 84.4 H (40.0-70.0) % Assessment and Plan - Patient Problems (1) Pulmonary emboli Current Visit: No Status: Acute Qualifiers: Pulmonary embolism type: unspecified Chronicity: acute Acute cor pulmonale presence: without acute cor pulmonale Qualified Code(s): I26.99 - Other pulmonary embolism without acute cor pulmonale Plan to address problem: Patient commenced on anticoagulation. We will also place consult to vascular surgery for evaluation. Patient is about 17 days post gastric sleeve surgery (2) Full code status Current Visit: No Status: Acute Plan to address problem: Patient is full code.
[2021-01-05] MEDS: MORPHINE 4 MG/1 ML INJ IV PRN ×2 (03:45→09:33)
[2021-01-05] MEDS ORDERED: HEPARIN 10,000 UNITS/10 ML VIAL IV PRN (11:51)
[2021-01-05] MEDS: MORPHINE 2 MG/1 ML INJ IV PRN ×2 (13:00→20:37)
--- NOTE | 2021-01-05 13:51 | Consultation ---
History of Present Illness - Reason for Consult Consult date: 01/05/21 Pulmonary Embolus Requesting physician: ERROL REYES - History of Present Illness The patient is a 40-year-old female with a history of morbid obesity who is postoperative day #18 from a gastric sleeve. She states that approximately 3 days ago she began experiencing right side chest pain that was worse with deep breaths. Over the next 3 days the chest pain progressively worsened prompting her to present to the emergency department. Her work-up included a CTA of her chest which revealed segmental pulmonary emboli involving the right middle and lower lobes. The patient states she has difficulty lying flat because this worsens her chest pain. She denies any significant shortness of breath. She denies any noticeable leg swelling or pain in bilateral lower extremities. She denies any history of hematemesis or hemoptysis. She denies any history of melena or bright red blood per rectum. She has no additional complaints at this time. Past History Past Medical History: arthritis, GERD, hypertension, other (Morbid obesity) Past Surgical History: Other (Breast reduction, gastric sleeve) Social history: no significant social history Family history: no significant family history Medications and Allergies Allergies Allergy/AdvReac Type Severity Reaction Status Date / Time latex Allergy Rash Verified 12/11/20 18:10 Home Medications Medication Instructions Recorded Confirmed Last Taken Type Esomeprazole Magnesium [NexIUM] 20 mg PO QDAY 01/05/21 01/05/21 01/03/21 History HYDROcodone/ACETAMINOPHEN 15 ml PO Q6H PRN 01/05/21 01/05/21 01/03/21 History [Hydrocodon-Acetamin 7.5-325/] Ibuprofen 400 mg PO PRN PRN 01/05/21 01/05/21 01/04/21 History Multivit-Min/Iron/Folic Acid/K 1 each PO QID 01/05/21 01/05/21 01/05/21 History [Bariatric Mv-Iron 45 mg Cap] Ondansetron [Zofran ODT TAB] 4 mg PO Q46H PRN 01/05/21 01/05/21 01/02/21 History Active Meds: Active Medications Acetaminophen (Acetaminophen 325 Mg Tab) 650 mg PO Q4H PRN PRN Reason: Pain MILD(1-3)/Fever >100.5/VELASCO Heparin Sodium (Porcine) (Heparin 10,000 Units/10 Ml Vial) 4,600 unit 40 unit/kg (4600 unit) IV Q6H PRN PRN Reason: Anti-Xa Assay < 0.1 units/ml Heparin Sodium/Sodium Chloride (Heparin/ 0.45% Nacl-25,000 Unit/500 Ml) 25,000 unit in 500 mls @ 30 mls/hr IV TITR CIARA; Protocol Last Admin: 01/05/21 03:45 Dose: 1,500 units/hr, 30 mls/hr Documented by: Magnesium Hydroxide (Magnesium Hydroxide (Mom) Oral Liqd Udc) 30 ml PO Q4H PRN PRN Reason: Constipation Morphine Sulfate (Morphine 2 Mg/1 Ml Inj) 2 mg IV Q4H PRN PRN Reason: Pain, Moderate (4-6) Last Admin: 01/05/21 13:00 Dose: 2 mg Documented by: Morphine Sulfate (Morphine 4 Mg/1 Ml Inj) 4 mg IV Q4H PRN PRN Reason: Pain , Severe (7-10) Last Admin: 01/05/21 09:33 Dose: 4 mg Documented by: Ondansetron HCl (Ondansetron 4 Mg/2 Ml Inj) 4 mg IV Q8H PRN PRN Reason: Nausea And Vomiting Sodium Chloride (Sodium Chloride 0.9% 10 Ml Flush Syringe) 10 ml IV PRN PRN PRN Reason: LINE FLUSH Sodium Chloride (Sodium Chloride 0.9% 10 Ml Flush Syringe) 10 ml IV BID [facility] Last Admin: 01/05/21 09:33 Dose: 10 ml Documented by: Review of Systems All systems: negative Exam - Constitutional Vitals: Temp Pulse Resp BP Pulse Ox 98.4 F 78 20 125/82 98 01/04/21 21:40 01/05/21 09:30 01/05/21 13:00 01/05/21 09:30 01/05/21 09:30 General appearance: Present: no acute distress - Respiratory Respiratory effort: normal, other (Breathing comfortably without supplemental oxygen) - Cardiovascular Heart rate: 75 Rhythm: regular - Extremities Extremities: pulses intact (Palpable pedal pulses bilaterally), No edema - Abdominal General gastrointestinal: Present: soft - Rectal Rectal Exam: deferred - Integumentary Integumentary: Present: clear Results - Labs CBC & Chem 7: 01/04/21 22:36 01/04/21 22:36 Labs: Abnormal lab results 01/04/21 Range/Units 22:36 RDW 13.1 L (13.2-15.2) % Lymph % (Auto) 10.3 L (13.4-35.0) % Lymph # (Auto) 0.7 L (1.2-5.4) K/mm3 Seg Neutrophils % 84.4 H (40.0-70.0) % - Imaging and Cardiology CT scan - chest: image reviewed Assessment and Plan The patient is a 40-year-old female with history of morbid obesity who is status post gastric sleeve surgery. She presents with segmental pulmonary emboli involving the right middle and lower lobes. She has no evidence of right heart strain or any additional indications for vascular surgery indication for throm bolysis or percutaneous chemical thrombectomy. The patient is hemodynamically stable with a heart rate that has remained in the 70s and a systolic blood pressure that has remained within the normal range. The patient's oxygen saturations have remained in the mid to high 90s without supplemental oxygen. The patient's troponins are negative. I would recommend converting her to oral anticoagulation with Eliquis 10 mg p.o. twice daily for 7 days followed by Eliquis 5 mg p.o. twice daily for 6 months if she able to tolerate tablets at this time. If she is unable to tolerate tablets she can be discharged on therapeutic Lovenox until she is able to be converted to oral anticoagulation. I discussed this plan with the patient who is expressed understanding and agrees.
--- NOTE | 2021-01-05 14:11 | Event Note ---
Date: 01/05/21 Pt called the office to notify us she was admitted for PE overnight. Upon examination pt is stable with some chest discomfort on heparin drip. She is tolerating liquids well. Appreciate Dr. Teixeira evaluation and reommendations. No surgical interveion indicated at this time. Pt can be discharged once cleared medically.
--- NOTE | 2021-01-05 15:11 | Event Note ---
Date: 01/05/21 Examined patient this afternoon. Discussed plan to discontinue heparin drip and start apixaban. Will need anticoagulation for the next 3 to 6 months depending on PCP preference. Plan to discharge in the AM if remains stable.
[2021-01-05 16:01] LABS: INR 1.12 (0.87-1.13)
[2021-01-05 16:44] LABS: Partial Thromboplastin Time 61.7 Sec. (24.2-36.6)
[2021-01-05] MEDS: APIXABAN 5 MG TAB PO SCH ×2 (18:34→22:59)
[2021-01-06] MEDS: MORPHINE 2 MG/1 ML INJ IV PRN ×2 (01:15→07:58)
[2021-01-06 05:44] LABS: Basophils % (Auto) 0.2 % (0.0-1.8); Eosinophils # (Auto) 0.1 K/mm3 (0.0-0.4); Hematocrit 34.7 % (30.3-42.9); Hemoglobin 11.8 gm/dl (10.1-14.3); Lymphocytes # (Auto) 1.5 K/mm3 (1.2-5.4); Lymphocytes % (Auto) 25.6 % (13.4-35.0); Mean Corpuscular HGB Conc 34 % (30-34); Mean Corpuscular Volume 91 fl (79-97); Monocytes # (Auto) 0.4 K/mm3 (0.0-0.8); Monocytes % (Auto) 7.7 % (0.0-7.3); Platelet Count 189 K/mm3 (140-440); Red Blood Count 3.81 M/mm3 (3.65-5.03); Red Cell Distribution Width 13.1 % (13.2-15.2)
[2021-01-06 05:50] LABS: INR 1.19 (0.87-1.13)
[2021-01-06 05:56] LABS: Blood Urea Nitrogen 8 mg/dL (7-17); Calcium 9.2 mg/dL (8.4-10.2); Hemolysis Index 3
[2021-01-06 06:01] LABS: BUN/Creatinine Ratio 13
--- NOTE | 2021-01-06 08:24 | Discharge Summary ---
Providers - Providers Date of Admission: 01/05/21 03:11 Date of discharge: 01/06/21 Attending physician: YOLIS SALEH MD 01/05/21 03:11 Consult to Physician [CONS] Routine Comment: Consulting Provider: FELISA GREGG Physician Instructions: Reason For Exam: Pulmonary embolism Primary care physician: MARCELLO LENNON Hospitalization Reason for admission: chest pain Condition: Fair Hospital course: 40-year-old woman with history of gastric sleeve surgery who presented [place] [facility] with complaints of chest pain. CT angiogram revealed acute moderate to large segmental pulmonary emboli. Heparin drip was started. Patient was switched to Eliquis. Chest pain resolved and she remained hemodynamically stable for discharge. Disposition: 01 HOME / SELF CARE / HOMELESS Final Discharge Diagnosis (Prints w/discharge instructions): Pulmonary emboli Time spent for discharge: 10 minutes Core Measure Documentation - Palliative Care Palliative Care/ Comfort Measures: Not Applicable - Core Measures Any of the following diagnoses?: DVT/PE - VTE Discharge Requirements Deep Vein Thrombosis/Pulmonary Embolism Present on Admission: Yes Has pt received <5 days of overlap therapy or INR<2.0: Yes Anticoagulant overlap therapy prescribed at discharge: Yes Exam - Physical Exam Narrative exam: GENERAL: Well-developed well-nourished. Sitting up in bed in no acute distress. CHEST/LUNGS: CTAB on room air HEART/CARDIOVASCULAR: RRR. No murmur, rubs or gallops appreciated. ABDOMEN: +BS. NT/ND. SKIN: No rashes noted. NEURO: No focal motor deficit. Follows all commands. EXTREMITIES: No cyanosis, clubbing or edema. PSYCH: Cooperative. - Constitutional Vitals: Temp Pulse Resp BP Pulse Ox 98.4 F 77 18 125/85 100 01/06/21 04:10 01/06/21 04:10 01/06/21 04:10 01/06/21 04:10 01/06/21 04:10 Plan Care Plan Goals: Start taking apixaban (Eliquis) as prescribed. Follow-up with primary care in 1 week to determine length of prescription. Assessment: Pleuritic chest pain shortness of breath resolved. Status post heparin drip. Patient started on Eliquis. Discharged home. Follow up with: MARCELLO LENNON MD [Primary Care Provider] - 7 Days Forms: Discharge Signature Page Prescriptions: Apixaban [Eliquis] 5 mg PO BID 30 Days #70 tablet HYDROcodone/APAP 7.5-325 [[employer] 7.5/325] 1 each PO Q6HR PRN 3 Days #12 tablet PRN Reason: Pain
[2021-01-06] MEDS: APIXABAN 5 MG TAB PO SCH (10:32)
[2021-01-06 11:46] VITALS: BP 126/77
--- NOTE | 2021-01-10 14:42 | Electrocardiograph Report ---
[facility] Test Date: 2021-01-05 Test Time: 00:48:42 Pat Name: GRANT OSORIO Department: Room: A454 1 Gender: F [employer]: ALEX : 1980 Requested By: ROXIE TRINIDAD Order Number: [id number] Reading MD: Marlen Kapoor Measurements Intervals Kegley Rate: 88 P: 25 CO: 124 QRS: 15 QRSD: 77 T: 12 QT: 337 QTc: 407 Interpretive Statements Sinus rhythm Probable left atrial enlargement Probable left ventricular hypertrophy No previous ECG available for comparison Electronically Signed On 01-10-2021 14:42:29 EDT by Marlen Kapoor
== END 2021-01-06 12:53 | disposition home or self-care (01) | DRG 176 ==
LOC: ED 21:17 → 4A 01-05 03:11
PROVIDERS: ADMIT Internal Medicine Geriatric Medicine; ATTEND Student in an Organized Health Care Education/Training Program
DX: I26.99 Other pulmonary embolism without acute cor pulmonale (principal); R09.1 Pleurisy; K21.9 Gastro-esophageal reflux disease without esophagitis; I10 Essential (primary) hypertension; E66.01 Morbid (severe) obesity due to excess calories; Z68.41 Body mass index [BMI] 40.0-44.9, adult; Z20.822 Contact with and (suspected) exposure to COVID-19
CPT/HCPCS: 36415; 71275; 80048; 80053; 82550; 83735; 83880; 84484; 84703; 85025; 85520; 85610; 85730; 93005; G0378; J1644; J2270; Q9967